=== PATIENT | male | born 1965 | race Hispanic/Latino ===

== ENCOUNTER → 2025-08-22 | Outpatient (CLI) | payer OTHER ==
[~2025-08-22] MED LIST: CALC-1104 PO; CANA300T PO; GLUC1CAP7 PO; GLYB-173 PO; SIMV40TA59 PO; VITAMIN B12 PO
--- NOTE | 2025-08-24 08:54 | HMCSR ---
APPROVED REPORT EXAM: Two-dimensional and M-mode echocardiogram with Doppler and color Doppler. INDICATION ICD: R06.02 Shortness of breath 2D Dimensions RVDd 4.0 cm LVEF(%) 61.6 (>50%) LVED Vol(simp.) 82.0 mL IVSd 1.1 (0.7-1.1cm) FS(%) 33 % LVES Vol(simp.) 35.0 mL LVDd 4.8 (3.8-5.6cm) LA (2D) 4.8 (1.6-4.0cm) LVEF(%, simp.) 58 % PWd 1.0 (0.7-1.1cm) Ao Root(2D) 2.9 (2.0-3.7cm) LA ESV INDEX (BP) 28.98 mL/m2 IVSs 1.0 cm LVOT diam 1.7 (1.8-2.4cm) LVDs 3.2 (2.5-4.0cm) PWs 1.6 cm M-Mode Dimensions EPSS 0.9 cm LA (MM) 4.7 (1.6-4.0cm) Ao Root(MM) 3.2 (2.0-3.7cm) Aortic Valve AoV Vmax 1.7 m/s Ao Peak GR 11.2 mmHg LVOT Vmax 1.6 m/s AoV VTI 0.3 m Ao Mean GR 6.4 mmHg LVOT VTI 0.30 m JANAY (VMAX) 2.03 cm2 JANAY (VTI) 2.3 cm2 Mitral Valve MV E Vmax 83.0 cm/s DECEL Time 173 ms MV A Vmax 70.6 cm/s P 1/2 T 52 ms E/A ratio 1.2 MVA (PHT) 4.3 cm2 TDI E/E' Medial 12.9 E/E' Lateral 11.1 Medial E' Peak V 6.42 cm/s Lateral E' Peak V 7.49 cm/s Pulmonary Valve PV Vmax 1.6 m/s PV Mean GR 5.9 mmHg PV Peak GR 10.3 mmHg Tricuspid Valve TR Vmax 2.5 m/s RAP (EST) 3 mmHg RVSP 28.0 mmHg TR Peak GR 25.0 mmHg Left Ventricle The left ventricle is normal size. No regional wall motion abnormalities noted. There is normal left ventricular wall thickness. LVEF is 60-65%. No left ventricle thrombus noted on this study. The left ventricular diastolic function is normal. Right Ventricle The right ventricle is normal size. The right ventricular systolic function is normal. Atria The left atrium size is normal. The right atrium size is normal. Chiari network is noted in the right atrium. Aortic Valve The aortic valve is trileaflet normal in structure. No aortic regurgitation is present. There is no aortic valvular stenosis. Mitral Valve The mitral valve is normal in structure. There is trace of mitral valve regurgitation noted. There is no mitral valve stenosis. Tricuspid Valve The tricuspid valve is normal in structure. There is mild tricuspid valve regurgitation noted. Pulmonic Valve The pulmonary valve is normal in structure. There is no pulmonic valvular regurgitation. Great Vessels The aortic root is normal in size. The IVC is normal in size and collapses >50% with inspiration. Pericardium There is no pericardial effusion. Other Information Quality : Adequate Conclusion The left ventricle is normal size. LVEF is 60-65%. The right ventricular systolic function is normal. The left atrium size is normal. The right atrium size is normal. Chiari network is noted in the right atrium. The aortic valve is trileaflet normal in structure. No aortic regurgitation is present. There is no aortic valvular stenosis. The mitral valve is normal in structure. There is trace of mitral valve regurgitation noted. There is no mitral valve stenosis. There is mild tricuspid valve regurgitation noted. The pulmonary valve is normal in structure. The aortic root is normal in size. The IVC is normal in size and collapses >50% with inspiration. There is no pericardial effusion.
== END | disposition home or self-care (01) ==
LOC: RAH 13:12
PROVIDERS: ATTEND Internal Medicine Cardiovascular Disease
DX: I07.1 Rheumatic tricuspid insufficiency (principal); Q24.8 Other specified congenital malformations of heart; R06.02 Shortness of breath
CPT/HCPCS: 93306